=== PATIENT | male | born 1940 | race Hispanic/Latino ===

== ENCOUNTER 2017-11-12 07:19 | Day surgery (SDC) | payer MEDICARE ==
[2017-11-09 09:54] VITALS: BMI 19.3
[2017-11-12 08:15] LABS: BASO # 0.01 [, K/mm3] (0.0-2.0); BASO % 0.2 % (0.0-3.0); EOS # 0.2 (0.0-0.7); EOS % 2.5 % (1.5-5.0); GRAN # 4.65 (1.4-6.5); GRAN % 71.1 % (50.0-68.0); HEMOGLOBIN 15.2 g/dL (14.0-18.0); LYMPH # 1.2 (1.2-3.4); LYMPH % 17.8 % (22.0-35.0); MEAN CORPUSCULAR HEMOGLOBIN 32.3 pg (25.0-35.0); MEAN CORPUSCULAR HGB CONC 33.3 g/dl (31.0-37.0); MEAN PLATELET VOLUME 9.9 fl (7.0-11.0); MONO # 0.6 (0.1-0.6); MONO % 8.4 % (1.0-6.0); RBC 4.71 [, 10^6/uL] (3.5-6.1); RED CELL DISTRIBUTION WIDTH 13.6 % (11.5-14.5); WHITE BLOOD COUNT 6.5 [, 10^3/ul] (4.5-11.0)
[2017-11-12 08:26] LABS: BLOOD UREA NITROGEN 14 mg/dL (7-21); GFR AFRICAN-AMERICAN > 60; GFR NON-AFRICAN AMERICAN > 60; HDL CHOLESTEROL 42 mg/dL (29-60)
[2017-11-12 08:33] LABS: INR 1.31 (0.93-1.08); PARTIAL THROMBOPLASTIN TIME 32.3 Seconds (25.1-36.5); PROTHROMBIN TIME 15.1 SECONDS (9.4-12.5)
[2017-11-12 08:36] LABS: LDL CHOLESTEROL 122 mg/dL (0-129)
[2017-11-12] MEDS ORDERED: Iodixanol 320 MG/ML 200 ML BOTTLE IV ONE (08:51)
[2017-11-12] MEDS ORDERED: Midazolam 2 MG/2 ML VIAL ONE ×2 (08:51→10:04)
[2017-11-12] MEDS ORDERED: Lidocaine 2% Inj (20ml) ONE ×2 (08:52→10:38)
[2017-11-12] MEDS ORDERED: HEPARIN SODIUM/NS 2,000 ML IV ONE (08:52)
[2017-11-12] MEDS ORDERED: Sodium Chloride 0.9% 1,000 ML IV SCH (11:15)
[2017-11-12 11:49] VITALS: RESP 20; TEMP 97
[2017-11-12 15:35] VITALS: BP 149/81; PULSE 73; O2SAT 95
--- NOTE | 2017-11-12 16:43 | CARD ---
APPROVED REPORT EKG Measurement Heart [id number] <Conclusion> Atrial fibrillation Possible Anterior infarct, age undetermined Abnormal ECG
--- NOTE | 2017-11-12 22:39 | CARDCATH ---
PROCEDURE DATE: 11/12/2017 HISTORY: The patient is a 77-year-old male with history of multivessel PTCA and stent in the past, who presents with an abnormal stress test, as well as an ischemic dilated cardiomyopathy. The patient also suffers from COPD, as well as significant peripheral vascular disease in the past including a fem-pop bypass. Because of this, cardiac catheterization was recommended. PROCEDURE: Left heart catheterization with coronary arteriography, left ventriculogram, and aortic root and peripheral runoff was performed. There were no complications. I performed moderate sedation which included the presence of an independent trained observer that assisted in the monitoring the patient's level of consciousness and physiologic status. After administration of Versed and fentanyl, my intra-service time was 30 minutes. FINDINGS: The findings on catheterization revealed a [id number] fem-fem bypass. The LV was visualized and was found to be diffusely hypokinetic with an estimated ejection fraction of 35% to 40%. His coronary anatomy revealed an occluded RCA which is chronic. The left main artery revealed calcification without critical stenoses. There was a patent stent in the proximal portion of the LAD with diffuse atherosclerosis in the coronary tree. Circumflex artery and obtuse marginal branches were free of significant disease, but revealed diffuse atherosclerosis. Manual compression was used to close the femoral artery sites on both sides. The patient tolerated the procedure well. In summary, the procedure revealed an ischemic dilated cardiomyopathy with an EF of approximately 35%. An occluded RCA. A patent stent in the proximal LAD. Ayag-cj-susta fem-fem bypass. Given these findings, the patient's treatment should be continued medical therapy. I have instructed the patient to stop his Plavix, and resume his Coumadin in the morning. Followup and instructions were given to the patient in detail. Jesus Bach MD
== END 2017-11-12 17:30 | disposition home or self-care (01) ==
LOC: CATH 07:19
PROVIDERS: ATTEND Internal Medicine Cardiovascular Disease
DX: I25.10 Atherosclerotic heart disease of native coronary artery without angina pectoris (principal); I42.0 Dilated cardiomyopathy; I25.5 Ischemic cardiomyopathy; I73.9 Peripheral vascular disease, unspecified; J44.9 Chronic obstructive pulmonary disease, unspecified; I48.91 Unspecified atrial fibrillation; Z79.01 Long term (current) use of anticoagulants; Z95.5 Presence of coronary angioplasty implant and graft
CPT/HCPCS: 36415; 80048; 80061; 85025; 85610; 85730; 86850; 86900; 93005; 93458; 99152; 99153; C1725; C1769 ×2; C2629; J1644; J2250; J3010; J7030; J7040

== ENCOUNTER 2019-02-24 12:10 | Inpatient (IN) | payer MEDICARE ==
[2019-02-24 12:32] VITALS: BMI 21.3
--- NOTE | 2019-02-24 12:55 | ED PDOC ---
Arrival/HPI <Cy Patel - Last Filed: 02/24/19 15:04> - General Historian: Patient - History of Present Illness Narrative History of Present Illness (Text): 02/24/19 12:54 CC: SOB 78 yo male w/ PMH of CAD w/ stent, COPD, GERD, Afib on coumadin, and dilated CM seen in Emergency Department for evaluation of shortbness of breath. Patient states the shortness of breath more than a week ago. Initially, patient was having cough a/w sob with productive yellowish-green sputum. After that he visited his PMD who prescribed him an oral antibiotic (does not remember which one) which he completed and noted that although he was still having cough that it was a clear sputum color. Patient denied fevers and admits to no sick contacts as he lives alone. Admits to decreased appetite with weight loss of 20 lbs, sob, FERNANDEZ, squeezing chest pressure, palpitations and dizziness at time. Denies fevers, chills, n/v, constipation or diarrhea, dysuria, diaphoresis, pain radiating into arm or neck. Time/Duration: > week Symptom Onset: Gradual Symptom Course: Worsening Activities at Onset: Rest Context: Sitting <Rani Cleveland - Last Filed: 02/24/19 17:01> - General Chief Complaint: Shortness Of Breath Time Seen by Provider: 02/24/19 12:52 Past Medical History - Provider Review Nursing Documentation Reviewed: Yes Primary Care Provider: Syed Escobar - Infectious Disease Hx of Infectious Diseases: None - Cardiac Hx Cardiac Disorders: Yes Hx Cardiac Arrhythmia: Yes (afib) Hx Hypertension: Yes Hx Peripheral Vascular Disease: Yes - Pulmonary Hx Respiratory Disorders: No - Neurological Hx Neurological Disorder: No - HEENT Hx HEENT Disorder: No - Renal Hx Renal Disorder: No - Endocrine/Metabolic Hx Endocrine Disorders: No - Hematological/Oncological Hx Blood Disorders: No - Integumentary Hx Dermatological Disorder: No - Musculoskeletal/Rheumatological Hx Musculoskeletal Disorders: No Hx Falls: No - Gastrointestinal Hx Gastrointestinal Disorders: No - Genitourinary/Gynecological Hx Genitourinary Disorders: No - Psychiatric Hx Psychophysiologic Disorder: No Hx Emotional Abuse: No Hx Physical Abuse: No Hx Substance Use: Yes (smokes weed sometimes) - Surgical History Hx Cardiac Catheterization: Yes Hx Coronary Stent: Yes Hx Orthopedic Surgery: Yes (LEFT SHOULDER) - Anesthesia Hx Anesthesia Reactions: No Hx Malignant Hyperthermia: No - Suicidal Assessment Feels Threatened In Home Enviroment: No <Law Clevelandanshul - Last Filed: 02/24/19 17:01> Family/Social History - Physician Review Nursing Documentation Reviewed: Yes Family/Social History: No Known Family HX Smoking Status: Former Smoker Hx Alcohol Use: No Hx Substance Use: Yes (smokes weed sometimes) Hx Substance Use Treatment: No <CristoferMadaser - Last Filed: 02/24/19 17:01> Allergies/Home Meds <BosompjosselynCy - Last Filed: 02/24/19 15:04> <Cristofer,Madaser - Last Filed: 02/24/19 17:01> Allergies/Adverse Reactions: Allergies No Known Allergies Allergy (Verified 06/29/18 23:38) Home Medications: Home Meds Medication Instructions Recorded Confirmed Metoprolol Tartrate 25 mg PO BID 09/01/14 06/30/18 Omeprazole [PrilOSEC] 40 mg PO ACB 03/17/15 06/30/18 Warfarin [Coumadin] 3 mg PO DAILY 11/07/17 06/30/18 Clopidogrel [Plavix] 4 tab PO SUN 11/09/17 06/30/18 Clopidogrel [Plavix] 75 mg PO MON 11/09/17 06/30/18 Pravastatin Sodium [Pravachol] 40 mg PO DAILY 11/09/17 06/30/18 Review of Systems - Physician Review All systems were reviewed & negative as marked: Yes - Review of Systems Constitutional: Weight Change. absent: Fatigue, Fevers, Night Sweats Eyes: Normal. absent: Vision Changes ENT: Normal. absent: Hearing Changes, Tinnitus Respiratory: SOB, Cough, Sputum Cardiovascular: Chest Pain, Palpitations Gastrointestinal: absent: Abdominal Pain, Stool Changes, Constipation, Diarrhea Genitourinary Male: Normal. absent: Dysuria, Frequency, Hematuria Skin: Normal. absent: Rash, Pruritis, Skin Lesions Neurological: Normal. absent: Headache, Dizziness, Focal Weakness Endocrine: Normal. absent: Diaphoresis, Polyuria, Polydipsia Psychiatric: Normal. absent: Anxiety, Depression <Law Clevelandaser - Last Filed: 02/24/19 17:01> Physical Exam Vital Signs Temp Pulse Resp BP Pulse Ox 02/24/19 12:32 98.3 F 116 H 22 166/86 H 93 L <Cy Patel - Last Filed: 02/24/19 15:04> Vital Signs Temp Pulse Resp BP Pulse Ox 02/24/19 12:32 98.3 F 116 H 22 166/86 H 93 L Temperature: Afebrile Blood Pressure: Normal Pulse: Regular Respiratory Rate: Normal Appearance: Positive for: Well-Appearing, Non-Toxic, Comfortable Pain Distress: None Mental Status: Positive for: Alert and Oriented X 3 - Systems Exam Head: Present: Atraumatic, Normocephalic Pupils: Present: PERRL Extroacular Muscles: Present: EOMI Conjunctiva: Present: Normal Mouth: Present: Moist Mucous Membranes Respiratory/Chest: Present: Clear to Auscultation, Decreased Breath Sounds. No: Respiratory Distress, Accessory Muscle Use, Wheezes Cardiovascular: Present: Normal S1, S2, Irregular Rhythm, Tachycardic. No: Regular Rate and Rhythm Abdomen: Present: Normal Bowel Sounds. No: Tenderness, Distention, Peritoneal Signs Upper Extremity: Present: Other (brusing noted in left upper extremity). No: Cyanosis, Edema, Swelling Lower Extremity: Present: Normal Inspection Neurological: Present: GCS=15, CN II-XII Intact Skin: Present: Warm, Dry, Normal Color. No: Rashes, Diaphoretic Psychiatric: Present: Alert, Oriented x 3, Normal Insight <Rani Cleveland - Last Filed: 02/24/19 17:01> Medical Decision Making ED Course and Treatment: 02/24/19 15:08 Patient Seen with Resident: In agreement with resident note which contains more details about the patient. Patient seen and evaluated with resident. Came up with plan and treatment together. - RAD Interpretation Radiology Orders: 02/24/19 12:58 CHEST PORTABLE [RAD] Stat 02/24/19 12:59 ANGIO CHEST PE PROTOCOL [CT] Stat - EKG Interpretation EKG Interpretation (Text): 02/24/19 12:40 Reviewed EKG, shows: Irregularly irregular rhythm at 109 BPM. Isolated PVC's. Prolonged QT interval. Interpreted by ED Physician: Yes Type: 12 lead EKG - Medication Orders Current Medication Orders: Discontinued Medications Albuterol/Ipratropium (Duoneb 3 Mg/0.5 Mg (3 Ml) Ud) 3 ml IH Q15M [facility]AND[facility] Stop: 02/24/19 13:31 Last Admin: 02/24/19 13:45 Dose: 3 ml Diltiazem HCl (Cardizem) 15 mg IVP STAT STA Stop: 02/24/19 13:04 Last Admin: 02/24/19 13:30 Dose: 15 mg IVP Administration Document 02/24/19 13:30 [facility] (Rec: 02/24/19 14:11 [id number] Charges for Administration # of IVP Administrations 1 Methylprednisolone (Solu-Medrol) 125 mg IVP STAT STA Stop: 02/24/19 13:01 Last Admin: 02/24/19 13:40 Dose: 125 mg IVP Administration Document 02/24/19 13:40 [facility] (Rec: 02/24/19 14:10 [id number] Charges for Administration # of IVP Administrations 1 <Cy Patel - Last Filed: 02/24/19 15:04> ED Course and Treatment: 02/24/19 13:10 Impression 78 yo male w/ PMH of COPD, GERD, Afib on coumadin, dilated CM, and HTN evaluated in emergency department for sob and cough despite outpatient antibiotics. Plan -CBC -CMP -VBG -EKG -Cxray -Chest CT -N.C -Duonebs -IV steroids x 1 Prior Visits 07-09-: Chest Pain 08/2014: Abdominal Pain Progress Notes EKG showed Afib w/ RVR, was given 1x dose of Cardizem IV 15mg (weight based dosage according to AHA) Pending Cxray, Chest CT (r/o PNA vs blood clot vs malignancy) Chest CT resulted and showed emphysema Cxray no active disease Duonebs and IV steroids for hypoxia; Nasal Cannula for oxygenation support Troponin x1 to rule out ACS (prior hx of stent placement) VBG/CBC to rule out sepsis Patient continues to be Afib despite IV cardizem (HR has decreased) Spoke with Dr. Centeno who will accept patient to his service under observation 02/24/19 16:57 Re-evaluation Time: 17:00 Reassessment Condition: Re-examined, Unchanged - Lab Interpretations I have reviewed the lab results: Yes Interpretation: Abnormal lab values - RAD Interpretation Strike Off Machine Operator: ED Physician, Radiologist <Rani Cleveland - Last Filed: 02/24/19 17:01> - PA / LADLE BUILDER / Resident Statement / has reviewed & agrees with the documentation as recorded. / has examined the patient and agrees with the treatment plan. <Cy Patel - Last Filed: 02/24/19 15:04> Disposition/Present on Arrival <Cy Patel - Last Filed: 02/24/19 15:04> - Present on Arrival Any Indicators Present on Arrival: No History of DVT/PE: No History of Uncontrolled Diabetes: No Urinary Catheter: No History of Decub. Ulcer: No History Surgical Site Infection Following: None - Disposition Have Diagnosis and Disposition been Completed?: Yes Disposition Time: 17:01 Patient Plan: Admission <Rani Cleveland - Last Filed: 02/24/19 17:01> - Disposition Diagnosis: Atrial fibrillation with rapid ventricular response Disposition: HOSPITALIZED Patient Problems: Current Active Problems Problem Status Onset Atrial fibrillation with rapid ventricular response Acute Condition: FAIR Referrals: Syed Escobar MD [Primary Care Provider] - Follow up with primary Forms: [employer] ([employer])
[2019-02-24] MEDS: Albuterol-Ipratrop 3 mg / 0.5 (3 ml) UD IH SCH ×4 (13:15→20:41)
[2019-02-24] MEDS ORDERED: Iohexol 350 MG/100 ML VIAL ONE (13:55)
--- NOTE | 2019-02-24 15:08 | CARD ---
APPROVED REPORT Date of service: 02/24/2019 EKG Measurement Heart [id number] <Conclusion> Atrial fibrillation with rapid ventricular response with premature ventricular or aberrantly conducted complexes Nonspecific ST and T wave abnormality Abnormal ECG
--- NOTE | 2019-02-24 15:15 | RAD ---
Date of service: 02/24/2019 HISTORY: sob COMPARISON: 06/30/2018 TECHNIQUE: 1 view obtained. FINDINGS: LUNGS: No active pulmonary disease. PLEURA: No significant pleural effusion identified, no pneumothorax apparent. CARDIOVASCULAR: No aortic atherosclerotic calcification present. Normal cardiac size. No pulmonary vascular congestion. OSSEOUS STRUCTURES: No significant abnormalities. VISUALIZED UPPER ABDOMEN: Normal. OTHER FINDINGS: None. IMPRESSION: No active disease.
[2019-02-24 15:32] LABS: VENOUS BLOOD GAS BASE EXCESS 3.5 mmol/L (0.0-2.0); VENOUS BLOOD GAS PO2 28 mm/Hg (30-55); VENOUS BLOOD PH 7.34 (7.32-7.43)
[2019-02-24 15:33] LABS: BASO # 0.01 K/mm3 (0.0-2.0); BASO % 0.1 % (0.0-3.0); EOS % 0.1 % (1.5-5.0); HEMOGLOBIN 17.2 g/dL (14.0-18.0); LYMPH # 0.5 (1.2-3.4); LYMPH % 3.8 % (22.0-35.0); MEAN CELL VOLUME 95.6 fl (80.0-105.0); MEAN CORPUSCULAR HEMOGLOBIN 31.6 pg (25.0-35.0); MEAN PLATELET VOLUME 9.7 fl (7.0-11.0); MONO # 0.7 (0.1-0.6); MONO % 4.8 % (1.0-6.0); PLATELET COUNT 134 10^3/uL (120.0-450.0); RBC 5.45 10^6/uL (3.5-6.1); RED CELL DISTRIBUTION WIDTH 13.7 % (11.5-14.5); WHITE BLOOD COUNT 13.8 10^3/uL (4.5-11.0)
[2019-02-24 15:44] LABS: ALB/GLOB RATIO 1.2 (1.1-1.8); ALBUMIN 4.5 g/dL (3.0-4.8); ALT/SGPT 11 U/L (7-56); AST/SGOT 34 U/L (17-59); BLOOD UREA NITROGEN 18 mg/dL (7-21); CALCIUM 9.9 mg/dL (8.4-10.5); GFR NON-AFRICAN AMERICAN 53
[2019-02-24 15:45] LABS: PARTIAL THROMBOPLASTIN TIME 44.3 Seconds (26.9-38.3)
[2019-02-24 15:54] LABS: B-TYPE NATRIURETIC PEPTIDE 2730 pg/mL (0-450); TROPONIN I < 0.01 ng/mL
[2019-02-24] MEDS ORDERED: Iodixanol 320 MG/ML 100 ML BOTTLE IV ONE (15:59)
[2019-02-24 16:01] LABS: PROTHROMBIN TIME 42.9 SECONDS (9.4-12.5)
[2019-02-24 16:05] LABS: INR 3.86
[2019-02-24 16:16] LABS: BAND 1 % (0-2); LYMPHOCYTE 5 % (22.0-35.0); MONOCYTE 5 % (1.0-6.0); NEUTROPHIL 89 % (50.0-70.0); PLATELET ESTIMATE NORMAL (NORMAL)
--- NOTE | 2019-02-24 16:41 | CT ---
Date of service: 02/24/2019 PROCEDURE: CT Chest with contrast (Pulmonary Angiogram) HISTORY: SOB w/ hypoxia COMPARISON: None available. TECHNIQUE: Axial computed tomography images were obtained of the chest in the pulmonary arterial phase of enhancement. Coronal and sagittal reformatted images were created and reviewed. Intravenous contrast dose: 100 mL Visipaque 320 Radiation dose: Total exam DLP = 344.27 mGy-cm. This CT exam was performed using one or more of the following dose reduction techniques: Automated exposure control, adjustment of the mA and/or kV according to patient size, and/or use of iterative reconstruction technique. FINDINGS: PULMONARY ARTERIES: Unremarkable. No pulmonary embolism. AORTA: No acute findings. No thoracic aortic aneurysm. No aortic atherosclerotic calcification or mural plaque present. LUNGS: There is centrilobular pulmonary emphysema predominantly in the upper lobes. There is a 5 mm noncalcified nodule posterior segment right upper lobe. There is a 4 mm nodule in the apical segment of the right upper lobe. There is a 3 mm nodule in the apical posterior segment of the left upper lobe. No follow-up is required for these nodules as per Fleischner society criteria. PLEURAL SPACES: Unremarkable. No effusion or pneumothorax. HEART: Mild cardiomegaly. LYMPH NODES: No lymphadenopathy. BONES, CHEST WALL: Unremarkable. No fracture or destructive lesion OTHER FINDINGS: Unremarkable. IMPRESSION: No evidence of pulmonary embolism. Centrilobular pulmonary emphysema. Few small nodules in the upper lobes for which no follow-up is required. Otherwise unremarkable examination.
[2019-02-24] MEDS ORDERED: Albuterol-Ipratrop 3 mg / 0.5 (3 ml) UD IH PRN (17:45)
[2019-02-25] MEDS ORDERED: guaiFENesin 100 mg/5 ml Syrup UD PO STA (00:18)
[2019-02-25] MEDS: Albuterol-Ipratrop 3 mg / 0.5 (3 ml) UD IH SCH ×3 (00:26→13:21)
--- NOTE | 2019-02-25 02:21 | CP.PCM.PN ---
Subjective - Date & Time of Evaluation Date of Evaluation: 02/25/19 Time of Evaluation: 02:20 - Subjective Subjective: S:It was requested to co-sign order for Robitussin. Patient was seen at bedside. He is comfortable, resting. Pertinent medical record was reviewed. O:VSS. Not in acute distress. LUNGS:Normal breathing pattern. A: Cough. P:Robitussin 5 ml PO x 1. Objective - Vital Signs/Intake and Output Vital Signs (last 24 hours): Temp Pulse Resp BP Pulse Ox 98.3 F 68 18 120/61 96 02/24/19 23:55 02/25/19 02:00 02/24/19 23:55 02/24/19 23:55 02/24/19 23:55 Intake and Output: 02/24/19 02/25/19 18:59 06:59 Intake Total 240 Balance 240 - Medications Medications: Current Medications Albuterol/Ipratropium (Duoneb 3 Mg/0.5 Mg (3 Ml) Ud) 3 ml IH Q6H [facility] Last Admin: 02/25/19 00:26 Dose: 3 ml Atorvastatin Calcium (Lipitor) 40 mg PO DIN BRANDY Metoprolol Tartrate (Lopressor) 50 mg PO BID [facility] Last Admin: 02/24/19 18:34 Dose: 50 mg Warfarin Sodium (Coumadin) 3 mg PO 1800 BRANDY; Protocol - Labs Labs: 02/24/19 15:24 02/24/19 15:24 PT 42.9 SECONDS (9.4-12.5) H 02/24/19 15:24 INR 3.86 H* 02/24/19 15:24 APTT 44.3 Seconds (26.9-38.3) H 02/24/19 15:24
[2019-02-25 08:10] LABS: LYMPH # 0.5 (1.2-3.4); LYMPH % 3.3 % (22.0-35.0); MEAN CELL VOLUME 94.3 fl (80.0-105.0); MEAN CORPUSCULAR HEMOGLOBIN 30.8 pg (25.0-35.0); MEAN CORPUSCULAR HGB CONC 32.7 g/dl (31.0-37.0); MEAN PLATELET VOLUME 9.7 fl (7.0-11.0); MONO # 0.2 (0.1-0.6); MONO % 1.5 % (1.0-6.0); RBC 4.87 10^6/uL (3.5-6.1); RED CELL DISTRIBUTION WIDTH 13.8 % (11.5-14.5); WHITE BLOOD COUNT 13.8 10^3/uL (4.5-11.0)
[2019-02-25 08:15] LABS: ALB/GLOB RATIO 1.2 (1.1-1.8); ALBUMIN 3.7 g/dL (3.0-4.8); ALT/SGPT 13 U/L (7-56); AST/SGOT 25 U/L (17-59); BLOOD UREA NITROGEN 23 mg/dL (7-21); CALCIUM 9.4 mg/dL (8.4-10.5); GFR NON-AFRICAN AMERICAN 58
[2019-02-25 08:17] LABS: PROTHROMBIN TIME 50.9 SECONDS (9.4-12.5)
[2019-02-25 08:19] LABS: INR 4.5
[2019-02-25] MEDS: guaiFENesin DM 100 mg-10 mg/5 ml UD PO PRN ×2 (10:38→17:33)
[2019-02-25 12:40] VITALS: RESP 20
--- NOTE | 2019-02-25 14:01 | CP.PCM.APN ---
Subjective - Date & Time of Evaluation Date of Evaluation: 02/25/19 Time of Evaluation: 10:15 - Subjective Subjective: pt seen and examined at bedside, pt on phone in NAD reports SOB has improved Review of Systems - Constitutional Constitutional: As Per HPI Objective - Vital Signs/Intake and Output Vital Signs (last 24 hours): Temp Pulse Resp BP Pulse Ox 97.8 F 88 20 122/73 96 02/25/19 12:00 02/25/19 12:00 02/25/19 12:00 02/25/19 12:00 02/25/19 05:39 Intake and Output: 02/25/19 02/25/19 06:59 18:59 Intake Total 360 Balance 360 - Medications Medications: Current Medications Albuterol/Ipratropium (Duoneb 3 Mg/0.5 Mg (3 Ml) Ud) 3 ml IH Q6H [facility] Last Admin: 02/25/19 13:21 Dose: 3 ml Atorvastatin Calcium (Lipitor) 40 mg PO DIN [facility] Guaifenesin/Dextromethorphan (Robitussin Dm) 5 ml PO Q4H PRN PRN Reason: Cough Last Admin: 02/25/19 10:38 Dose: 5 ml Metoprolol Tartrate (Lopressor) 50 mg PO BID [facility] Last Admin: 02/25/19 09:22 Dose: 50 mg Pantoprazole Sodium (Protonix Ec Tab) 40 mg PO 0600 [facility] - Labs Labs: 02/25/19 07:30 02/25/19 07:30 PT 50.9 SECONDS (9.4-12.5) H 02/25/19 07:30 INR 4.50 H* 02/25/19 07:30 APTT 44.3 Seconds (26.9-38.3) H 02/24/19 15:24 - Constitutional Appears: No Acute Distress - Eye Exam Eye Exam: Normal appearance Pupil Exam: NORMAL ACCOMODATION - Cardiovascular Exam Cardiovascular Exam: +S1, +S2 - GI/Abdominal Exam GI & Abdominal Exam: Soft, Normal Bowel Sounds - Extremities Exam Extremities Exam: Full ROM - Neurological Exam Neurological Exam: Alert, Awake, Oriented x3 Additional comments: SAWYER - Psychiatric Exam Psychiatric exam: Normal Affect, Normal Mood - Skin Skin Exam: Dry, Intact Assessment and Plan - Assessment and Plan (Free Text) Plan: ITS Impressions Chest X-Ray 02/24/19 12:58 IMPRESSION: No active disease. Chest CT 02/24/19 12:59 IMPRESSION: No evidence of pulmonary embolism. Centrilobular pulmonary emphysema. Few small nodules in the upper lobes for which no follow-up is required. Otherwise unremarkable examination. A/P Pt with CAD with stent, GERD, Afib on coumadin, cardiomyopathy who presented with SOB and cough now undergoing further eval and treatment. Pt s/p IV solumedrol Chest CT noted negative for PE, positive emphysema pt with elevated INR levels and coumadin on hold pt on Betablocker regimen for rate control ekg noted for afib with RVR will continue to monitor clinical status BPCI/TIC - BPCIA/TIC Educated pt/family on BPCIA/CIR/Med to Bed Programs: N/A Flyers given, including [facility] Beneficiary letter: N/A Pt/family verbalized understanding & agreed to program: N/A
[2019-02-25] MEDS ORDERED: Levalbuterol 0.63 MG/3 ML Inhal Soln UD IH PRN (14:21)
--- NOTE | 2019-02-25 16:19 | HP ---
HISTORY OF PRESENT ILLNESS: The patient is a 78-year-old man with a past medical history of atrial fibrillation who presented for evaluation of a several day history of chest tightness, dyspnea and palpitations. He was seen in his PMD's office approximately 1 week prior for evaluation of URI-type symptoms associated with chest tightness, wheeze and dyspnea. He was diagnosed with bronchitis and prescribed antibiotics and steroids. He reported significant improvement in his symptoms but continued to endorse occasional dyspnea and palpitations. He returned to his PMD for reevaluation and on examination was found to have clear lungs but was tachycardic with a pulse in the 130s. He was then sent to the ED for further evaluation. In the ED he was afebrile, albeit tachycardic with a pulse in the 120s. Laboratory studies were largely unremarkable with exception of an INR of 3.86. The patient was subsequently admitted to the telemetry lanier for continued management of atrial fibrillation with rapid ventricular response. PAST MEDICAL HISTORY: As per HPI, also CAD s/p PCI with stent placement, dilated cardiomyopathy, COPD and GERD. PAST SURGICAL HISTORY: None. ALLERGIES: NKDA. MEDICATIONS: Coumadin 3 mg p.o. daily, Pravastatin 40 mg p.o. daily, Prilosec 40 mg p.o. daily and Metoprolol 25 mg p.o. b.i.d. FAMILY HISTORY: Noncontributory. SOCIAL HISTORY: The patient reports a former smoking history but quit several years ago. He denies social alcohol use or illicit drug abuse. REVIEW OF SYSTEMS: A 12-point review of systems is negative except as per HPI. PHYSICAL EXAMINATION: VITAL SIGNS: Temperature 97.5, pulse 63, blood pressure 103/66, respiratory rate 18, oxygen saturation 96% on 2 liters nasal cannula. GENERAL: No apparent distress. HEENT: PERRL, EOMI. No scleral icterus. No conjunctival pallor. NECK: No JVD. No bruits. CARDIOPULMONARY: Irregularly irregular. Normal S1, S2. LUNGS: Clear to auscultation. ABDOMEN: Normoactive bowel sounds, soft, nontender, nondistended. EXTREMITIES: No edema. NEUROLOGIC: Awake, alert and oriented x 3. No focal motor deficits. LABORATORY DATA: WBC 13.8 with 95% neutrophils, hemoglobin 15, hematocrit 46, platelets 137. Sodium 130, potassium 4.3, chloride 102, bicarb 27, BUN 23, creatinine 1.2, glucose 134. Troponin < 0.01. INR 4.5. ASSESSMENT: The patient is a 78-year-old man with multiple medical comorbidities who presented for evaluation of a several day history of palpitations and exertional dyspnea and was admitted for management of Afib with RVR. PLAN: 1. Afib with RVR. The patient's heart rate is controlled since increasing Metoprolol to 50 mg p.o. b.i.d. Coumadin on hold as INR supratherapeutic at 4.5 We will continue to monitor INR daily with goal 2-3. Given that patient has no evidence of bleed there is no indication to reverse his INR. 2. CAD s/p PCI with stent placement. He remains chest pain free. Continue Lipitor 40 mg p.o. daily and Metoprolol 50 mg p.o. b.i.d. 3. Dilated cardiomyopathy. The patient remains clinically euvolemic. Continue with care as above. 4. COPD. Continue with supplemental oxygen and bronchodilators as needed. 5. GERD. Continue Protonix 40 mg p.o. daily. 6. Prophylaxis. Continue Protonix for GI prophylaxis. DVT prophylaxis not indicated as he remains on Coumadin. CODE STATUS: Full code. Henry Escobar MD MTDDenis
[2019-02-26] MEDS: guaiFENesin DM 100 mg-10 mg/5 ml UD PO PRN (05:37)
[2019-02-26] MEDS ORDERED: Pantoprazole 40 mg EC Tab PO SCH (06:00)
[2019-02-26 06:03] VITALS: TEMP 98.2; O2SAT 96
[2019-02-26 07:17] LABS: INR 3.04; PROTHROMBIN TIME 34.3 SECONDS (9.4-12.5)
[2019-02-26 07:21] LABS: ALB/GLOB RATIO 1.1 (1.1-1.8); ALBUMIN 3.7 g/dL (3.0-4.8); ALT/SGPT 17 U/L (7-56); AST/SGOT 42 U/L (17-59); BLOOD UREA NITROGEN 26 mg/dL (7-21); CALCIUM 9.3 mg/dL (8.4-10.5); GFR NON-AFRICAN AMERICAN > 60
[2019-02-26 07:26] LABS: EOS % 0.1 % (1.5-5.0); HEMOGLOBIN 15.9 g/dL (14.0-18.0); LYMPH # 0.8 (1.2-3.4); LYMPH % 3.8 % (22.0-35.0); MEAN CELL VOLUME 93.5 fl (80.0-105.0); MEAN CORPUSCULAR HEMOGLOBIN 31.2 pg (25.0-35.0); MEAN CORPUSCULAR HGB CONC 33.4 g/dl (31.0-37.0); MEAN PLATELET VOLUME 9.6 fl (7.0-11.0); MONO # 1.1 (0.1-0.6); MONO % 5.7 % (1.0-6.0); RBC 5.09 10^6/uL (3.5-6.1); RED CELL DISTRIBUTION WIDTH 13.9 % (11.5-14.5); WHITE BLOOD COUNT 19.7 10^3/uL (4.5-11.0)
[2019-02-26] MEDS ORDERED: Magnesium Citrate Oral SOL (300 ml) PO ONE (08:52)
[2019-02-26 09:19] VITALS: BP 114/72; PULSE 105
--- NOTE | 2019-02-26 13:37 | PN ---
SUBJECTIVE: The patient was seen and examined at bedside on the telemetry lanier. No acute events overnight. He remains afebrile and hemodynamically stable. This morning he feels okay and his sole complaint is that of some constipation. OBJECTIVE: VITAL SIGNS: Temperature 98.2, pulse 88, blood pressure 129/77, respiratory rate 20, oxygen saturation 96% on room air. GENERAL: No apparent distress. HEENT: PERRL, EOMI. No scleral icterus. No conjunctival pallor. NECK: No JVD. No bruits. LUNGS: Clear to auscultation. CARDIOVASCULAR: Irregularly irregular. Normal S1, S2. ABDOMEN: Normoactive bowel sounds, soft, nontender, nondistended. EXTREMITIES: No edema. NEUROLOGIC: Awake, alert and oriented x 3. No focal motor deficits. LABORATORY DATA: WBC 19.7 with 90% neutrophils, hemoglobin 16, hematocrit 47, platelets 153. Chemistry reviewed and unremarkable. INR 3.04. ASSESSMENT: The patient is a 78-year-old man with multiple medical comorbidities who presented for evaluation of a several day history of palpitations and exertional dyspnea and was admitted for management of atrial fibrillation with rapid ventricular response. PLAN: 1. Afib. The patient remains rate controlled. Continue Metoprolol 50 mg p.o. b.i.d. We will resume Coumadin 2.5 mg p.o. daily upon discharge with goal INR of 2 to 3. 2. CAD s/p PCI with stent placement. Continue Lipitor 40 mg p.o. daily and Metoprolol 50 mg p.o. b.i.d. 3. Dilated cardiomyopathy. The patient remains clinically euvolemic. Continue with care as above. 4. COPD. Continue supplemental oxygen and bronchodilators as needed. 5. GERD. Continue Protonix 40 mg p.o. daily. 6. Constipation. We will administer magnesium citrate. 7. Prophylaxis. Continue Protonix for GI prophylaxis. DVT prophylaxis is not indicated as he remains on Coumadin. CODE STATUS: Full code. Henry Escobar MD [facility]ITAL[facility]is
--- NOTE | 2019-02-28 06:15 | DS ---
ADMITTING DIAGNOSIS: Atrial fibrillation with rapid ventricular response. DISCHARGE DIAGNOSIS: Atrial fibrillation. SECONDARY DIAGNOSES: Coronary artery disease, status post percutaneous coronary intervention with stent placement, dilated cardiomyopathy, chronic obstructive pulmonary disease, and gastroesophageal reflux disease. CONSULTATIONS: None. IMAGING STUDIES: 1. Chest x-ray demonstrated no active disease. 2. CT of the chest with IV contrast demonstrated no evidence of PE. DIAGNOSTIC STUDIES: None. PROCEDURES: None. HISTORY OF PRESENT ILLNESS: The patient is a 78-year-old man with past medical history of atrial fibrillation who presented for evaluation of a several-day history of chest tightness, dyspnea, and palpitations. He was seen in his PMD's office approximately 1-week prior for evaluation of URI-type symptoms associated with chest tightness, wheeze, and dyspnea. He was diagnosed with bronchitis and prescribed antibiotics and steroids. He reports significant improvement in his symptoms, but continued to endorse occasional dyspnea and palpitations. He returned to his PMD for reevaluation and on examination was found to have clear lungs, but was tachycardic with a pulse in the 130s. He was then sent to the ED for further evaluation. In the ED, he was afebrile, albeit tachycardic with a pulse in the 120s. Laboratory studies were largely unremarkable with the exception of an INR of 3.86. The patient was subsequently admitted to the telemetry [facility] for continued management of atrial fibrillation with rapid ventricular response. HOSPITAL COURSE: Upon admission to the telemetry [facility], the patient was restarted on his home medications with the exception of Coumadin, which was placed on hold due to a supratherapeutic INR. His metoprolol dose was also increased to 50 mg p.o. b.i.d. with subsequent satisfactory rate control. The remainder of the patient's hospital course was unremarkable and he remained afebrile, hemodynamically stable and chest pain free. Cardiac enzymes were cycled, which were negative and due to the patient's hemodynamic stability and resolution of his symptoms, he was cleared for discharged to home. CONDITION: Good, improved. DISPOSITION: Home. DISCHARGE MEDICATIONS: Metoprolol 50 mg p.o. b.i.d., Coumadin 2.5 mg p.o. daily, pravastatin 40 mg p.o. daily, and Prilosec 40 mg p.o. daily. DISCHARGE INSTRUCTIONS: The patient was advised to hold his Coumadin for an additional 2 days due to supratherapeutic INR and to follow up with his PMD for an INR check prior to restarting his Coumadin. He was also advised if he has any recurrence of his symptoms to present to his PMD or to the nearest ED immediately. FOLLOWUP: The patient to follow up with his PMD within 1 week of discharge and the patient to follow up with his agriculture technician as scheduled. Henry Escobar MD [facility] # [id number]
== END 2019-02-26 13:54 | disposition home or self-care (01) | DRG 310 ==
LOC: ED 12:10 → ERH 16:47 → 2RNO 18:06
PROVIDERS: ADMIT Student in an Organized Health Care Education/Training Program; ATTEND Student in an Organized Health Care Education/Training Program
PROC: 3E0F7GC Introduction of Other Therapeutic Substance into Respiratory Tract, Via Natural or Artificial Opening (ICD-10-PCS; principal; 2019-02-24)
DX: I48.91 Unspecified atrial fibrillation (principal); I25.10 Atherosclerotic heart disease of native coronary artery without angina pectoris; I10 Essential (primary) hypertension; I42.0 Dilated cardiomyopathy; J44.9 Chronic obstructive pulmonary disease, unspecified; K21.9 Gastro-esophageal reflux disease without esophagitis; K59.00 Constipation, unspecified; Z79.01 Long term (current) use of anticoagulants; Z95.5 Presence of coronary angioplasty implant and graft; Z87.891 Personal history of nicotine dependence